=== PATIENT | male | born 1935 ===

== ENCOUNTER → 2020-06-05 06:00 | Outpatient (CLI) | payer OTHER ==
[~2020-06-05 06:00] MED LIST: ACID REDUCER20 M1 PO; ADALAT CC30 MG PO; DULCOLAX5 MG PO; HORIZANT300 MG PO; LORATADINE5 MG/5 M2 PO; SIMVASTA PO; SYNTHROID88 MCG PO; ZESTRIL10 M1 PO
== END | disposition home or self-care (01) ==
LOC: LAB 06:00 → ADM 10:30 → CIR.AMB 06-06 06:24 → EDSTATUS 06-06 10:30 → ADM 06-06 10:30 → CIR.AMB 06-06 10:30
PROVIDERS: ATTEND Anesthesiology Pain Medicine
DX: M51.36 Other intervertebral disc degeneration, lumbar region (principal); M54.16 Radiculopathy, lumbar region; I10 Essential (primary) hypertension; Z11.59 Encounter for screening for other viral diseases; M48.061 Spinal stenosis, lumbar region without neurogenic claudication; M48.07 Spinal stenosis, lumbosacral region; Z20.828 Contact with and (suspected) exposure to other viral communicable diseases